=== PATIENT | female | born 1995 | race Two or more races ===

== ENCOUNTER 2020-09-12 08:37 | Outpatient (CLI) | payer OTHER | END 2020-09-12 08:41 | disposition home or self-care (01) | LOC: SONOGRAMA 08:37 | PROVIDERS: ATTEND Pathology Anatomic Pathology & Clinical Pathology | DX: E04.2 Nontoxic multinodular goiter (principal) ==

== ENCOUNTER 2024-04-30 05:11 | Emergency (ER) | payer OTHER ==
[~2024-04-30] VITALS: Ht 154.9 cm; Wt 58.1 kg
[2024-04-30] MEDS ORDERED: SYNTHROID150 MCG PO (05:28)
[2024-04-30] MEDS ORDERED: ADDERALL 30 MG30 MG PO (05:29)
[2024-04-30] MEDS ORDERED: FAMOTIDINE/PF 20 MG/2 ML VIAL IV PUSH STA (06:56)
[2024-04-30] MEDS ORDERED: METHYLPREDNISOLONE SOD SUCC 125 MG VIAL IV STA (06:56)
[2024-04-30] MEDS ORDERED: DIPHENHYDRAMINE HCL 50 MG/ML VIAL 1ML IV STA (06:56)
[2024-04-30] MEDS ORDERED: EPINEPHRINE HCL/PF 1 MG/ML AMPUL SUBCUTANEO STA (06:57)
[2024-04-30] MEDS ORDERED: FAMOTIDINE/PF 20 MG/2 ML VIAL ONE (07:15)
[2024-04-30] MEDS ORDERED: EPINEPHRINE HCL/PF 1 MG/ML AMPUL ONE (07:15)
[2024-04-30] MEDS ORDERED: METHYLPREDNISOLONE SOD SUCC 125 MG VIAL ONE (07:15)
[2024-04-30] MEDS ORDERED: DIPHENHYDRAMINE HCL 50 MG/ML VIAL 1ML ONE (07:15)
== END 2024-04-30 09:33 | disposition home or self-care (01) ==
LOC: ER 05:13
DX: L50.8 Other urticaria (principal); R21 Rash and other nonspecific skin eruption; T78.40XA Allergy, unspecified, initial encounter